=== PATIENT | female | born 1970 | race Caucasian/White ===

== ENCOUNTER → 2018-07-10 11:00 | Outpatient (CLI) | payer OTHER, SELFPAY | PROVIDERS: PCP Internal Medicine | DX: Z23 Encounter for immunization (principal) | CPT/HCPCS: 90471; 90686 ==

== ENCOUNTER → 2021-02-13 15:26 | Outpatient (CLI) | payer OTHER, SELFPAY ==
--- NOTE | 2021-02-13 | DI.MG.S_ITS ---
BILATERAL DIGITAL SCREENING MAMMOGRAM 3D/2D WITH CAD: 02/13/2021 CLINICAL: Routine screening. Comparison is made to exams dated: 05/04/2017 mammogram - [facility], 04/06/2017 mammogram, and 09/14/2011 mammogram - [facility]. There are scattered fibroglandular elements in both breasts. Current study was also evaluated with a Computer Aided Detection (CAD) system. No significant masses, calcifications, or other findings are seen in either breast. There has been no significant interval change. IMPRESSION: NEGATIVE There is no mammographic evidence of malignancy. A 1 year screening mammogram is recommended. This exam was interpreted at Station ID: [id number]. NOTE: For mammograms, a report in lay terms will be sent to the patient. Approximately 15% of breast malignancies will not be visualized mammographically. In the management of a palpable breast mass, a negative mammogram must not discourage biopsy of a clinically suspicious lesion. Electronically Signed By: Jennifer steel/jessica:02/22/2021 13:07:00 letter sent: Normal Exam ACR BI-RADS Category 1: Negative [id number]
== END ==
PROVIDERS: PCP Nurse Practitioner Family; Referring Provider Nurse Practitioner Family; Visit Provider Nurse Practitioner Family
DX: Z12.31 Encounter for screening mammogram for malignant neoplasm of breast (principal)
CPT/HCPCS: 77063; 77067

== ENCOUNTER 2024-04-01 10:12 | Observation (INO) | payer OTHER, SELFPAY ==
[2024-04-01] VITALS (24 sets, daily range): BP systolic 103–186; BP diastolic 65–100; PULSE 85–102; RESP 17–36; TEMP 36.1–36.4; O2SAT 92–98; BMI 45.8
--- NOTE | 2024-04-01 10:21 | ED.GENADULT ---
HPI - General Adult General Chief complaint: Shortness of Breath/Dyspnea Stated complaint: cant breathe cant talk Time Seen by Provider: 04/01/24 10:13 Source: patient Mode of arrival: Ambulatory Limitations: no limitations History of Present Illness HPI narrative: Patient is a 53-year-old female. No underlying lung issues such as COPD or asthma who is here for evaluation of shortness of breath and wheezing. She states that she has had off and on issues for the past several weeks but things have worsened over the past couple days in the significantly worsened over the past couple hours. No fevers. She was coughing. She does have access to a albuterol nebulizer at home and she did do at least 1 nebulizer if not more without much improvement. She was having chest discomfort with the coughing and breathing. Related Data Home Medications Medication Instructions Recorded Confirmed hyoscyamine sulfate 0.125 mg 0.125 mg sublingual ##0 05/10/17 04/03/18 disintegrating tablet Previous Rx's Medication Instructions Recorded fluoxetine 20 mg capsule 20 mg PO QDAY #30 caps 06/13/17 imiquimod 5 % topical cream packet 1 johanny topical HS ##12 09/19/17 (Aldara) Allergies Allergy/AdvReac Type Severity Reaction Status Date / Time amoxicillin [From AUGMENTIN] Allergy Severe chest Verified 04/01/24 10:29 pain, SOB clavulanic acid Allergy Severe chest Verified 04/01/24 10:29 [From AUGMENTIN] pain, SOB latex [LATEX] Allergy Intermediate Rash Verified 04/01/24 10:29 lisinopril [LISINOPRIL] Allergy Mild cough Verified 04/01/24 10:29 Review of Systems Review of Systems Narrative: See HPI Patient History Medical History (Updated 04/01/24 @ 14:51 by Abdifatah Huitron DO) Anxiety History of adenomatous polyp of colon Exercise-induced asthma Essential hypertension Irritable bowel syndrome Depression Migraines Knee pain Shoulder pain Fractures Foot pain Chronic back pain Ankle pain Eczema Acne Chicken pox Recurrent sinusitis Painful menstrual periods Ovarian cyst Irregular menstrual cycle Infertility (~1999) Hemorrhoid (~2005) Gluten enteropathy (~2010) GERD (gastroesophageal reflux disease) (~2009) Polycystic ovaries (05/10/17) Obstructive sleep apnea syndrome (05/10/17) Celiac disease (05/10/17) Surgical History Anesthesia History of ankle surgery (~06/2016) History of knee surgery (~1996) History of carpal tunnel repair (~07/2014) Family History Child Age: 16 Cerebral palsy Father Age: 78 Colon cancer Hypertension Grandfather Heart disease Stroke Diabetes mellitus Grandmother Mental health problem History of aneurysm Mother Age: 77 Depression Uterine cancer Hypertension High cholesterol Mental health problem Grandfather Heart disease Diabetes mellitus Stroke Grandmother Hypertension Mental health problem Sister Age: 55 Colon cancer Graves disease Social History Smoking Status: Never smoker Smoking Status: Never smoker Exam Initial Vital Signs Initial Vital Signs: Vital Signs Pulse Rate 102 H 04/01/24 10:18 Pulse Oximetry 94 04/01/24 10:18 HENMT Head: normal to inspection and normocephalic Resp Effort & Inspection: cough, labored, respiratory distress, no retractions and tachypneic Auscultation: wheezes Cardio Rate: regular rate Rhythm: regular rhythm Neuro General: patient alert, patient awake and moves all extremities Extrem General: capillary refill normal Course Orders Ordered: ED Orders 04/01/24 10:22 XR chest 1V Stat RT Consult Eval and Treat Now 04/01/24 10:25 Complete Blood Count AUTO DIFF Stat Comprehensive Metabolic Panel Stat Lipase Stat 04/01/24 12:28 Respiratory Panel (Film Array) Stat Discontinued Medications Acetaminophen (Acetaminophen 325 Mg Tablet) 975 mg PO NOW ONE Stop: 04/01/24 11:51 Last Admin: 04/01/24 12:16 Dose: 975 mg Documented By: TIFFANIE Albuterol (Albuterol 2.5 Mg/3 Ml Neb (Adult)) 20 mg INH NOW ONE Stop: 04/01/24 11:45 Last Admin: 04/01/24 12:47 Dose: 20 mg Documented By: CONNER Albuterol/Ipratropium (Albuterol/Ipratropium 3 Ml Ampul) 3 ml INH Q20M ERNESTO Stop: 04/01/24 11:11 Last Admin: 04/01/24 11:19 Dose: 3 ml Documented By: Admin: 04/01/24 10:51 Dose: 3 ml Documented By: Admin: 04/01/24 10:29 Dose: 3 ml Documented By: Magnesium Sulfate (Magnesium Sulfate) 2 gm in 50 mls @ 25 mls/hr IV NOW ONE Stop: 04/01/24 13:43 Last Infusion: 04/01/24 14:21 Dose: Infused Documented By: TIFFANIE Co-signed By: DEB Admin: 04/01/24 12:17 Dose: 25 mls/hr Documented By: TIFFANIE Co-signed By: DEB Ketorolac Tromethamine (Ketorolac 30 Mg/Ml Vial) 30 mg IV NOW ONE Stop: 04/01/24 14:48 Methylprednisolone (Methylprednisolone 125 Mg/2 Ml Vial) 125 mg IV NOW ONE Stop: 04/01/24 10:22 Last Admin: 04/01/24 10:32 Dose: 125 mg Documented By: OMARI Vital Signs Vital signs: Vital Signs - 8 hr 04/01/24 10:18 04/01/24 10:19 04/01/24 10:19 Temperature Pulse Rate 102 H 98 H Respiratory Rate Blood Pressure 138/100 H Pulse Oximetry 94 93 Oxygen Delivery Method Oxygen Flow Rate Fraction of Inspired Oxygen 04/01/24 10:24 04/01/24 10:30 04/01/24 11:00 Temperature 97.5 F L Pulse Rate 94 H 91 H 90 Respiratory Rate 24 36 H Blood Pressure 138/100 H Pulse Oximetry 97 97 94 Oxygen Delivery Method Room Air Oxygen Flow Rate Fraction of Inspired Oxygen 04/01/24 11:30 04/01/24 12:00 04/01/24 12:13 Temperature Pulse Rate 100 H 91 H 95 H Respiratory Rate 22 21 Blood Pressure Pulse Oximetry 96 92 95 Oxygen Delivery Method Oxygen Flow Rate Fraction of Inspired Oxygen 04/01/24 12:13 04/01/24 12:30 04/01/24 12:31 Temperature Pulse Rate 91 H Respiratory Rate 22 Blood Pressure 176/71 H 186/85 H Pulse Oximetry 93 Oxygen Delivery Method Oxygen Flow Rate Fraction of Inspired Oxygen 04/01/24 12:31 04/01/24 12:48 04/01/24 13:00 Temperature Pulse Rate 95 H 96 H 86 Respiratory Rate 31 H 20 Blood Pressure Pulse Oximetry 93 93 98 Oxygen Delivery Method Room Air Room Air Oxygen Flow Rate 0 Fraction of Inspired Oxygen 21 04/01/24 13:01 04/01/24 13:01 04/01/24 13:30 Temperature Pulse Rate 87 85 Respiratory Rate 17 19 Blood Pressure 160/78 H Pulse Oximetry 98 97 Oxygen Delivery Method Oxygen Flow Rate Fraction of Inspired Oxygen 04/01/24 13:31 04/01/24 13:31 04/01/24 14:00 Temperature Pulse Rate 85 85 Respiratory Rate 20 21 Blood Pressure 174/71 H Pulse Oximetry 98 97 Oxygen Delivery Method Aerosol Mask Oxygen Flow Rate 7 Fraction of Inspired Oxygen 04/01/24 14:01 04/01/24 14:01 Temperature Pulse Rate 87 Respiratory Rate 22 Blood Pressure 167/90 H Pulse Oximetry 97 Oxygen Delivery Method Aerosol Mask Oxygen Flow Rate 7 Fraction of Inspired Oxygen Medical Decision Making Lab Data Lab results reviewed: Yes I reviewed the patient's lab results. 04/01/24 10:25 04/01/24 10:25 Labs: Lab Results 04/01/24 04/01/24 Range/Units 10:25 12:28 WBC 12.4 H (4.5-11.0) X10^3/uL RBC 4.97 (4.0-5.2) X10^6/uL Hgb 15.8 (12.0-16.0) g/dL Hct 46.4 H (36-46) % MCV 93.3 (80-100) fL MCH 31.8 (26-34) PG MCHC 34.1 (30-36) % RDW 13.6 (11.6-14.8) % Plt Count 334 (150-400) X10^3/uL Neut % (Auto) 72.2 (50-75) % Lymph % (Auto) 17.1 L (25-40) % [place] % (Auto) 6.5 (3-14) % Eos % (Auto) 3.6 (2-4) % Baso % (Auto) 0.6 (0-2) % Neut # (Auto) 8900 H (5496-6483) /uL Lymph # (Auto) 2100 (9310-4766) /uL [place] # (Auto) 800 (0-900) /uL Eos # (Auto) 400 (0-450) /uL Baso # (Auto) 100 (0-100) /uL Sodium 142 (137-145) mmol/L Potassium 4.2 (3.4-5.1) mmol/L Chloride 111 H (98-107) mmol/L Carbon Dioxide 25 (22-32) mmol/L BUN 14 (7-17) mg/dL Creatinine 0.63 (0.52-1.04) mg/dL Estimated GFR > 60 (>60) mL/min BUN/Creatinine Ratio 22.2 H (6-22) Glucose 109 H (70-100) mg/dL Calcium 9.3 (8.4-10.2) mg/dL Total Bilirubin 0.6 (0.2-1.3) mg/dL AST 39 H (14-36) IU/L ALT 57 H (<35) IU/L Alkaline Phosphatase 93 (38-126) U/L Total Protein 8.6 H (6.3-8.2) g/dL Albumin 4.5 (3.5-5.0) g/dL Globulin 4.1 (1.7-4.1) g/dL Albumin/Globulin Ratio 1.1 (1.0-2.8) Lipase 82 (23-300) U/L Chlamy pneumoniae PCR Not detected (Not Detect) Adenovirus (PCR) Not detected (Not Detect) B.parapertussis DNA PCR Not detected (Not Detecte) Coronavirus OC43 (PCR) Not detected (Not Detect) Coronavirus HKU1 (PCR) Not detected (Not Detect) Coronavirus 229E (PCR) Not detected (Not Detect) SARS-CoV-2 (PCR) Not detected (Not Detecte) Coronavirus NL63 (PCR) Not detected (Not Detect) Human Metapneumovir PCR Not detected (Not Detect) Influenza Type A (PCR) Not detected (Not Detect) Influenza Type B (PCR) Not detected (Not Detect) M. pneumoniae (PCR) Not detected (Not Detect) Parainfluenza 1 (PCR) Not detected (Not Detect) Parainfluenza 2 (PCR) Not detected (Not Detect) Parainfluenza 3 (PCR) Not detected (Not Detect) Parainfluenza 4 (PCR) Not detected (Not Detect) RSV (PCR) Not detected (Not Detect) Entero/Rhino (PCR) Not detected (Not Detect) Imaging Data Chest x-ray: Radiologist's Impression: PROCEDURE: XR CHEST 1V INDICATIONS: SOB TECHNIQUE: One view of the chest was acquired. COMPARISON: None. FINDINGS: Surgical changes and devices: None. Lungs and pleura: Lungs are clear. No pleural effusions or pneumothorax. Mediastinum: Mediastinal contours appear normal. Heart size is normal. Bones and chest wall: No suspicious bony lesions. Overlying soft tissues appear unremarkable. IMPRESSION: No acute cardiopulmonary abnormality is seen. MDM Narrative Medical decision making narrative: Afebrile. Does have a leukocytosis however chest x-ray shows no signs of pneumonia. Respiratory panel was negative. Had bilateral wheezing upon arrival. Improved somewhat after 3 DuoNebs, magnesium, steroids and a continuous nebulizer but patient is still hypoxic with a oxygen saturations in the upper 80s low 90s. No antibiotics were administered. Patient is going to require admission to the hospital for continued treatment. Discussed the case with Dr. Amezquita who will admit. Discussed the need for admission with the patient. She expressed understanding and agreement with plan. Discharge Plan Departure Patient Disposition: Admitted as Observation Clinical Impression: Bilateral wheezing, Hypoxia Admit Date/Time: 04/01/24 14:51 Admit Provider: Hoang Amezquita
--- NOTE | 2024-04-01 10:22 | DI.RAD.S_ITS ---
PROCEDURE: XR CHEST 1V INDICATIONS: SOB TECHNIQUE: One view of the chest was acquired. COMPARISON: None. FINDINGS: Surgical changes and devices: None. Lungs and pleura: Lungs are clear. No pleural effusions or pneumothorax. Mediastinum: Mediastinal contours appear normal. Heart size is normal. Bones and chest wall: No suspicious bony lesions. Overlying soft tissues appear unremarkable. IMPRESSION: No acute cardiopulmonary abnormality is seen. Dictated by: Bam Caceres M.D. on 04/01/2024 at 9:54 Approved by: Bam Caceres M.D. on 04/01/2024 at 9:54
[2024-04-01] MEDS: ALBUTEROL/IPRATROPIUM 3 ML AMPUL INH ×3 (10:29→11:19)
[2024-04-01] MEDS: methylPREDNISolone 125 MG/2 ML VIAL IV (10:32)
[2024-04-01 10:53] LABS: Add Manual Diff / Slide Review NO; Alanine Aminotransferase 57 IU/L (<35); Albumin 4.5 g/dL (3.5-5.0); Albumin Globulin Ratio 1.1 (1.0-2.8); Alkaline Phosphatase 93 U/L (38-126); Aspartate Aminotransferase 39 IU/L (14-36); BUN Creatinine Ratio 22.2 (6-22); Basophils Absolute Auto 100 /uL (0-100); Basophils Percent Auto 0.6 % (0-2); Bilirubin Total 0.6 mg/dL (0.2-1.3); Blood Urea Nitrogen 14 mg/dL (7-17); Calcium 9.3 mg/dL (8.4-10.2); Carbon Dioxide 25 mmol/L (22-32); Chloride 111 mmol/L (98-107); Eosinophils Absolute Auto 400 /uL (0-450); Eosinophils Percent Auto 3.6 % (2-4); Estimated Glomerular Filt Rate > 60 mL/min (>60); Globulin 4.1 g/dL (1.7-4.1); Glucose 109 mg/dL (70-100); HEMOLYSIS < 15 (0-50); Hematocrit 46.4 % (36-46); Hemoglobin 15.8 g/dL (12.0-16.0); Lipase 82 U/L (23-300); Lymphocytes Absolute Auto 2100 /uL (1100-4500); Lymphocytes Percent Auto 17.1 % (25-40); Mean Corpuscular HGB Conc 34.1 % (30-36); Mean Corpuscular Hemoglobin 31.8 PG (26-34); Mean Corpuscular Volume 93.3 fL (80-100); Monocytes Absolute Auto 800 /uL (0-900); Monocytes Percent Auto 6.5 % (3-14); Neutrophils Absolute Auto 8900 /uL (1500-7000); Neutrophils Percent Auto 72.2 % (50-75); Platelet Count 334 X10^3/uL (150-400); Potassium 4.2 mmol/L (3.4-5.1); Red Blood Cell Count 4.97 X10^6/uL (4.0-5.2); Red Cell Distribution Width 13.6 % (11.6-14.8); Sodium 142 mmol/L (137-145); Total Protein 8.6 g/dL (6.3-8.2); White Blood Cell Count 12.4 X10^3/uL (4.5-11.0)
[2024-04-01] MEDS: ACETAMINOPHEN 325 MG TABLET 975 MG PO (12:16)
[2024-04-01] MEDS: MAGNESIUM SULFATE 2 GM/50 ML PIGGYBACK IV (12:17)
--- NOTE | 2024-04-01 12:41 | PC.NURSE ---
Elana ok'd the patient to eat, pt afterwards had a sustained coughing fit for several minutes after one bite. told pt to hold off on eating anything more. pt oxygen saturation was maintained above 94%
[2024-04-01] MEDS: ALBUTEROL 2.5 MG/3 ML NEB (ADULT) 20 MG INH (12:47)
[2024-04-01 13:39] LABS: Adenovirus Not Detected (Not Detect); B. parapertussis Not Detected (Not Detecte); Bordetella pertussis Not Detected (Not Detect); Chlamydophila pneumoniae Not Detected (Not Detect); Coronavirus 229E Not Detected (Not Detect); Coronavirus HKU1 Not Detected (Not Detect); Coronavirus NL 63 Not Detected (Not Detect); Coronavirus OC43 Not Detected (Not Detect); Human Metapneumovirus Not Detected (Not Detect); Human Rhinovirus/Enterovirus Not Detected (Not Detect); Influenza A Not Detected (Not Detect); Influenza B Not Detected (Not Detect); Mycoplasma pneumoniae Not Detected (Not Detect); Parainfluenza Virus 1 Not Detected (Not Detect); Parainfluenza Virus 2 Not Detected (Not Detect); Parainfluenza Virus 3 Not Detected (Not Detect); Parainfluenza Virus 4 Not Detected (Not Detect); Respiratory Syncytial Virus Not Detected (Not Detect); SARS- CoV-2 Not Detected (Not Detecte)
[2024-04-01] MEDS: KETOROLAC 30 MG/ML VIAL IV (15:04)
--- NOTE | 2024-04-01 15:33 | PM.HP.1 ---
History of Present Illness History of Present Illness Date Patient Seen: 04/01/24 Chief complaint: cant breathe cant talk Narrative: ED Provider: Patient is a 53-year-old female. No underlying lung issues such as COPD or asthma who is here for evaluation of shortness of breath and wheezing. She states that she has had off and on issues for the past several weeks but things have worsened over the past couple days in the significantly worsened over the past couple hours. No fevers. She was coughing. She does have access to a albuterol nebulizer at home and she did do at least 1 nebulizer if not more without much improvement. She was having chest discomfort with the coughing and breathing. S: She was a history of exercise-induced asthma and uses an inhaler rarely. She also has a lot of allergies including alters, grass, and dogs. There has been a lot of cutting activity of surrounding trees and grass over the last 2 weeks and she has been progressively short of breath for the last 2 weeks. She has been using her inhaler more than usual but not a great deal until this morning when she developed acute shortness a breath in a hoarse voice. She presented to the ED and was dyspneic and did not really respond to magnesium and several albuterol inhalers. Her saturations were 93%. She has a lot of bronchospasm and coughing fits wean produce a scant sputum. She denies any recent URI symptoms such as fevers, chills, productive cough, or sore throat. A viral PCR was negative in the ED. She was given IV corticosteroids in the ED. [facility] Medical History Anxiety History of adenomatous polyp of colon Exercise-induced asthma Essential hypertension Irritable bowel syndrome Depression Migraines Knee pain Shoulder pain Fractures Foot pain Chronic back pain Ankle pain Eczema Acne Chicken pox Recurrent sinusitis Painful menstrual periods Ovarian cyst Irregular menstrual cycle Infertility (~1999) Hemorrhoid (~2005) Gluten enteropathy (~2010) GERD (gastroesophageal reflux disease) (~2009) Polycystic ovaries (05/10/17) Obstructive sleep apnea syndrome (05/10/17) Celiac disease (05/10/17) Surgical History Anesthesia History of ankle surgery (~06/2016) History of knee surgery (~1996) History of carpal tunnel repair (~07/2014) Family History Child Age: 16 Cerebral palsy Father Age: 78 Colon cancer Hypertension Grandfather Heart disease Stroke Diabetes mellitus Grandmother Mental health problem History of aneurysm Mother Age: 77 Depression Uterine cancer Hypertension High cholesterol Mental health problem Grandfather Heart disease Diabetes mellitus Stroke Grandmother Hypertension Mental health problem Sister Age: 55 Colon cancer Graves disease Social History household members: spouse Smoking Status: Current some day smoker Meds Home Medications and Allergies Home Medications Medication Instructions Recorded Confirmed Type albuterol sulfate 90 mcg/actuation 1 inh inhalation QID PRN Shortness 04/01/24 04/01/24 History aerosol inhaler Of Breath Or Wheezing gabapentin 100 mg capsule 100 mg PO ONCE PM PRN Sleep 04/01/24 04/01/24 History losartan 25 mg tablet 25 mg PO DAILY 04/01/24 04/01/24 History meloxicam 15 mg tablet 15 mg PO DAILY PRN Pain (Scale 04/01/24 04/01/24 History Score 4-6) propranolol 80 mg capsule,24 80 mg PO DAILY 04/01/24 04/01/24 History hr,extended release venlafaxine 150 mg 300 mg PO DAILY 04/01/24 04/01/24 History capsule,extended release 24 hr Allergies Allergy/AdvReac Type Severity Reaction Status Date / Time amoxicillin [From AUGMENTIN] Allergy Severe chest Verified 04/01/24 10:29 pain, SOB clavulanic acid Allergy Severe chest Verified 04/01/24 10:29 [From AUGMENTIN] pain, SOB latex [LATEX] Allergy Intermediate Rash Verified 04/01/24 10:29 lisinopril [LISINOPRIL] Allergy Mild cough Verified 04/01/24 10:29 Review of Systems Review of Systems Narrative: All else reviewed and otherwise unremarkable except as noted in the history and physical. Exam Vital Signs (past 8 hours): - 04/01/24 10:18 04/01/24 10:19 04/01/24 10:19 Temperature Pulse Rate 102 H 98 H Respiratory Rate Blood Pressure 138/100 H Pulse Oximetry 94 93 Oxygen Delivery Method Oxygen Flow Rate Fraction of Inspired Oxygen 04/01/24 10:24 04/01/24 10:30 04/01/24 11:00 Temperature 97.5 F L Pulse Rate 94 H 91 H 90 Respiratory Rate 24 36 H Blood Pressure 138/100 H Pulse Oximetry 97 97 94 Oxygen Delivery Method Room Air Oxygen Flow Rate Fraction of Inspired Oxygen 04/01/24 11:30 04/01/24 12:00 04/01/24 12:13 Temperature Pulse Rate 100 H 91 H 95 H Respiratory Rate 22 21 Blood Pressure Pulse Oximetry 96 92 95 Oxygen Delivery Method Oxygen Flow Rate Fraction of Inspired Oxygen 04/01/24 12:13 04/01/24 12:30 04/01/24 12:31 Temperature Pulse Rate 91 H Respiratory Rate 22 Blood Pressure 176/71 H 186/85 H Pulse Oximetry 93 Oxygen Delivery Method Oxygen Flow Rate Fraction of Inspired Oxygen 04/01/24 12:31 04/01/24 12:48 04/01/24 13:00 Temperature Pulse Rate 95 H 96 H 86 Respiratory Rate 31 H 20 Blood Pressure Pulse Oximetry 93 93 98 Oxygen Delivery Method Room Air Room Air Oxygen Flow Rate 0 Fraction of Inspired Oxygen 21 04/01/24 13:01 04/01/24 13:01 04/01/24 13:30 Temperature Pulse Rate 87 85 Respiratory Rate 17 19 Blood Pressure 160/78 H Pulse Oximetry 98 97 Oxygen Delivery Method Oxygen Flow Rate Fraction of Inspired Oxygen 04/01/24 13:31 04/01/24 13:31 04/01/24 14:00 Temperature Pulse Rate 85 85 Respiratory Rate 20 21 Blood Pressure 174/71 H Pulse Oximetry 98 97 Oxygen Delivery Method Aerosol Mask Oxygen Flow Rate 7 Fraction of Inspired Oxygen 04/01/24 14:01 04/01/24 14:01 04/01/24 14:30 Temperature Pulse Rate 87 91 H Respiratory Rate 22 23 Blood Pressure 167/90 H Pulse Oximetry 97 93 Oxygen Delivery Method Aerosol Mask Oxygen Flow Rate 7 Fraction of Inspired Oxygen 04/01/24 15:00 04/01/24 15:09 04/01/24 15:09 Temperature Pulse Rate 97 H 98 H Respiratory Rate Blood Pressure 120/81 Pulse Oximetry 93 Oxygen Delivery Method Oxygen Flow Rate Fraction of Inspired Oxygen Fraction of Inspired Oxygen 21 SaO2/FiO2 Ratio 442 Oxygen Delivery Method Aerosol Mask Oxygen Flow Rate 7 Narrative Exam Narrative: NAD, alert and oriented, fluent speech, calm. She does have crackly speech and intermittent bronchospasm with talking. Normocephalic skull, EOMI, anicteric sclera, symmetric pupils. Oropharynx unremarkable, no droop. Neck supple, midline trachea, no adenopathy. Lungs clear, normal rate and effort. No real stridor. Heart regular, no murmur gallop or rub. Abdomen is soft, non distended and non tender. Extremities are free of edema. Skin is free of rash or lesions. Joints are not swollen or deformed. Judgment appears to be normal. Objective Imaging Chest x-ray: Radiologist's impression: Clear. Labs 04/01/24 10:25 04/01/24 10:25 Labs: Laboratory Results - last 24 hr 04/01/24 04/01/24 10:25 12:28 WBC 12.4 H RBC 4.97 Hgb 15.8 Hct 46.4 H MCV 93.3 MCH 31.8 MCHC 34.1 RDW 13.6 Plt Count 334 Neut % (Auto) 72.2 Lymph % (Auto) 17.1 L [place] % (Auto) 6.5 Eos % (Auto) 3.6 Baso % (Auto) 0.6 Neut # (Auto) 8900 H Lymph # (Auto) 2100 [place] # (Auto) 800 Eos # (Auto) 400 Baso # (Auto) 100 Sodium 142 Potassium 4.2 Chloride 111 H Carbon Dioxide 25 BUN 14 Creatinine 0.63 Estimated GFR > 60 BUN/Creatinine Ratio 22.2 H Glucose 109 H Calcium 9.3 Total Bilirubin 0.6 AST 39 H ALT 57 H Alkaline Phosphatase 93 Total Protein 8.6 H Albumin 4.5 Globulin 4.1 Albumin/Globulin Ratio 1.1 Lipase 82 Chlamy pneumoniae PCR Not detected Adenovirus (PCR) Not detected B.parapertussis DNA PCR Not detected Coronavirus OC43 (PCR) Not detected Coronavirus HKU1 (PCR) Not detected Coronavirus 229E (PCR) Not detected SARS-CoV-2 (PCR) Not detected Coronavirus NL63 (PCR) Not detected Human Metapneumovir PCR Not detected Influenza Type A (PCR) Not detected Influenza Type B (PCR) Not detected M. pneumoniae (PCR) Not detected Parainfluenza 1 (PCR) Not detected Parainfluenza 2 (PCR) Not detected Parainfluenza 3 (PCR) Not detected Parainfluenza 4 (PCR) Not detected RSV (PCR) Not detected Entero/Rhino (PCR) Not detected Assessment & Plan Assessment & Plan narrative: 1. Acute asthma exacerbation, present on admission and active. 2. Hypertension, present on admission and active. 3. Polycystic ovaries, present on admission and active. 4. MIGNON, present on admission and active. 5. Morbid obesity, present on admission and active. PLAN: -frequent albuterol nebs, scheduled and as needed. -continue IV corticosteroids. -add loratadine. -Tessalon for cough. -pain medication as needed for sore chest from cough. -monitor breathing and evidence of respiratory distress. She was admitted to observation status, anticipate 1 midnight necessity for hospital services. She was full resuscitation, is proxy decision maker. Time-Based Coding :: 40 min spent with patient and on the chart (including review of chart, obtaining history, exam, reviewing outside data, placing orders, documenting exam and treatment plan, and counseling patient) on 04/01. Quality MIPS - Admit I confirm the patient?s Advance Care Plan is present, Code status is documented, Surrogate decision maker is in patient?s record [If Yes, STOP here]: Yes MIPS - Meds 'Current medications' to include all prescriptions, [id number] products, herbals, cannabis/cannabidiol products, and vitamin/mineral/dietary (nutritional) supplements. I have utilized all available resources to obtain, update, or review the patient?s current medications. [If Yes, STOP here]: Yes
[2024-04-01] MEDS: methylPREDNISolone 125 MG/2 ML VIAL 60 MG IV ×2 (17:11→23:14)
[2024-04-01] MEDS: BENZONATATE 100 MG CAPSULE PO (17:11)
[2024-04-01] MEDS: LORATADINE 10 MG TABLET PO (17:11)
[2024-04-01] MEDS: ALBUTEROL 2.5 MG/3 ML NEB (ADULT) INH ×3 (18:29→22:48)
[2024-04-01] MEDS: HEPARIN 5,000 UNIT/ML VIAL 5000 UNIT SUBCUT (20:48)
[2024-04-01] MEDS: ACETAMINOPHEN 325 MG TABLET 650 MG PO (20:57)
[2024-04-02 02:40] VITALS: BP 140/59; PULSE 98; RESP 20; TEMP 36.3; O2SAT 96
[2024-04-02] MEDS: TRAZODONE 50 MG TABLET PO (02:42)
[2024-04-02] MEDS: guaiFENesin Solution 100 MG/5 ML UDC 200 MG PO (02:42)
[2024-04-02] MEDS: methylPREDNISolone 125 MG/2 ML VIAL 60 MG IV ×2 (05:28→11:51)
[2024-04-02 05:35] VITALS: BP 112/46; PULSE 97; RESP 18; TEMP 36.6; O2SAT 92
[2024-04-02 06:40] LABS: Add Manual Diff / Slide Review NO; Basophils Absolute Auto 0 /uL (0-100); Basophils Percent Auto 0.2 % (0-2); Eosinophils Absolute Auto 0 /uL (0-450); Eosinophils Percent Auto 0.1 % (2-4); Hematocrit 42.6 % (36-46); Hemoglobin 14.1 g/dL (12.0-16.0); Lymphocytes Absolute Auto 1500 /uL (1100-4500); Mean Corpuscular HGB Conc 33.1 % (30-36); Mean Corpuscular Hemoglobin 31.2 PG (26-34); Mean Corpuscular Volume 94.4 fL (80-100); Monocytes Absolute Auto 400 /uL (0-900); Monocytes Percent Auto 1.8 % (3-14); Neutrophils Absolute Auto 17300 /uL (1500-7000); Neutrophils Percent Auto 89.9 % (50-75); Platelet Count 275 X10^3/uL (150-400); Red Blood Cell Count 4.51 X10^6/uL (4.0-5.2); Red Cell Distribution Width 13.8 % (11.6-14.8); White Blood Cell Count 19.2 X10^3/uL (4.5-11.0)
[2024-04-02 06:47] LABS: Blood Urea Nitrogen 22 mg/dL (7-17); Calcium 9.1 mg/dL (8.4-10.2); Carbon Dioxide 22 mmol/L (22-32); Chloride 109 mmol/L (98-107); Estimated Glomerular Filt Rate > 60 mL/min (>60); Glucose 163 mg/dL (70-100); HEMOLYSIS < 15 (0-50); Potassium 3.9 mmol/L (3.4-5.1); Sodium 136 mmol/L (137-145)
[2024-04-02] MEDS: VENLAFAXINE ER 75 MG CAP 300 MG PO (08:08)
[2024-04-02] MEDS: LOSARTAN 25 MG TABLET PO (08:08)
[2024-04-02] MEDS: LORATADINE 10 MG TABLET PO (08:08)
[2024-04-02] MEDS: ALBUTEROL 2.5 MG/3 ML NEB (ADULT) INH (08:31)
[2024-04-02 08:32] VITALS: PULSE 97; RESP 18; O2SAT 97
[2024-04-02 08:34] VITALS: BP 141/77; PULSE 93; RESP 18; TEMP 36.1; O2SAT 96
--- NOTE | 2024-04-02 11:03 | P.DS_ITS ---
History of Present Illness History of Present Illness Chief complaint: cant breathe cant talk Narrative: ED Provider: Patient is a 53-year-old female. No underlying lung issues such as COPD or asthma who is here for evaluation of shortness of breath and wheezing. She states that she has had off and on issues for the past several weeks but things have worsened over the past couple days in the significantly worsened over the past couple hours. No fevers. She was coughing. She does have access to a albuterol nebulizer at home and she did do at least 1 nebulizer if not more without much improvement. She was having chest discomfort with the coughing and breathing. S: She was a history of exercise-induced asthma and uses an inhaler rarely. She also has a lot of allergies including alters, grass, and dogs. There has been a lot of cutting activity of surrounding trees and grass over the last 2 weeks and she has been progressively short of breath for the last 2 weeks. She has been using her inhaler more than usual but not a great deal until this morning when she developed acute shortness a breath in a hoarse voice. She presented to the ED and was dyspneic and did not really respond to magnesium and several albuterol inhalers. Her saturations were 93%. She has a lot of bronchospasm and coughing fits wean produce a scant sputum. She denies any recent URI symptoms such as fevers, chills, productive cough, or sore throat. A viral PCR was negative in the ED. She was given IV corticosteroids in the ED. Discharge Providers Provider Date of admission: 04/01/24 14:51 Discharge Date: 04/02/24 Primary care physician: BATSHEVA Gupta Consults: 04/01/24 16:25 Consult to Cardio/Pulmonary Rehabilitation Routine Comment: Physician Instructions: Evaluate and treat Discharge provider: Hoang Amezquita MD Summary Hospital Course Discharge Diagnosis: 1. Acute asthma exacerbation, present on admission and active. 2. Hypertension, present on admission and active. 3. Polycystic ovaries, present on admission and active. 4. MIGNON, present on admission and active. 5. Morbid obesity, present on admission and active. Hospital Course: She was admitted for a moderate exacerbation of reactive airways in context of her allergies and asthma. She was treated with steroids and frequent bronchodilators and improved. She also required pain medication and antitussive agents. On the day of discharge he was much improved and had minimal wheezing and felt that her breathing was much better. She was also given loratadine here, and she was advised to continue taking an antihistamine for the rest of the allergy season. She notes allergies that are trees, and grasses. She also did list dogs as an allergy but states that she does not react her own dogs. Status at Discharge Cognitive/behavioral status at discharge: oriented Functional status at discharge: independent ambulation Overall status at discharge: patient is back to baseline Time Spent with Patient Time spent: Greater than 30 minutes Exam Vital Signs (past 8 hours): - 04/02/24 05:35 04/02/24 08:32 04/02/24 08:34 Temperature 97.8 F 97 F L Pulse Rate 97 H 97 H 93 H Respiratory Rate 18 18 18 Blood Pressure 112/46 L 141/77 H Pulse Oximetry 92 97 96 Oxygen Delivery Method Room Air Oxygen Flow Rate 0 0 Fraction of Inspired Oxygen 21 Fraction of Inspired Oxygen 21 SaO2/FiO2 Ratio 461 Oxygen Delivery Method Room Air Oxygen Flow Rate 0 Narrative Exam Narrative: NAD, alert and oriented. Fluent speech. Lungs are clear, normal rate and effort. Heart is regular, no murmur gallop or rub. Abdomen is soft, non distended. Extremities are free of edema. Objective Imaging Chest x-ray: Radiologist's impression: Chest x-ray is clear. Labs 04/02/24 06:26 04/02/24 06:26 Labs: Laboratory Results - last 24 hr 04/01/24 04/02/24 12:28 06:26 WBC 19.2 H D RBC 4.51 Hgb 14.1 Hct 42.6 MCV 94.4 MCH 31.2 MCHC 33.1 RDW 13.8 Plt Count 275 Neut % (Auto) 89.9 H Lymph % (Auto) 8.0 L [place] % (Auto) 1.8 L Eos % (Auto) 0.1 L Baso % (Auto) 0.2 Neut # (Auto) 28733 H Lymph # (Auto) 1500 [place] # (Auto) 400 Eos # (Auto) 0 Baso # (Auto) 0 Sodium 136 L Potassium 3.9 Chloride 109 H Carbon Dioxide 22 BUN 22 H Creatinine 0.55 Estimated GFR > 60 BUN/Creatinine Ratio 40.0 H Glucose 163 H Calcium 9.1 Chlamy pneumoniae PCR Not detected Adenovirus (PCR) Not detected B.parapertussis DNA PCR Not detected Coronavirus OC43 (PCR) Not detected Coronavirus HKU1 (PCR) Not detected Coronavirus 229E (PCR) Not detected SARS-CoV-2 (PCR) Not detected Coronavirus NL63 (PCR) Not detected Human Metapneumovir PCR Not detected Influenza Type A (PCR) Not detected Influenza Type B (PCR) Not detected M. pneumoniae (PCR) Not detected Parainfluenza 1 (PCR) Not detected Parainfluenza 2 (PCR) Not detected Parainfluenza 3 (PCR) Not detected Parainfluenza 4 (PCR) Not detected RSV (PCR) Not detected Entero/Rhino (PCR) Not detected PFSH Medical History Anxiety History of adenomatous polyp of colon Exercise-induced asthma Essential hypertension Irritable bowel syndrome Depression Migraines Knee pain Shoulder pain Fractures Foot pain Chronic back pain Ankle pain Eczema Acne Chicken pox Recurrent sinusitis Painful menstrual periods Ovarian cyst Irregular menstrual cycle Infertility (~1999) Hemorrhoid (~2005) Gluten enteropathy (~2010) GERD (gastroesophageal reflux disease) (~2009) Polycystic ovaries (05/10/17) Obstructive sleep apnea syndrome (05/10/17) Celiac disease (05/10/17) Surgical History Anesthesia History of ankle surgery (~06/2016) History of knee surgery (~1996) History of carpal tunnel repair (~07/2014) Family History Child Age: 16 Cerebral palsy Father Age: 78 Colon cancer Hypertension Grandfather Heart disease Stroke Diabetes mellitus Grandmother Mental health problem History of aneurysm Mother Age: 77 Depression Uterine cancer Hypertension High cholesterol Mental health problem Grandfather Heart disease Diabetes mellitus Stroke Grandmother Hypertension Mental health problem Sister Age: 55 Colon cancer Graves disease Social History household members: spouse Smoking Status: Current some day smoker Discharge Assessment & Plan Assessment and Plan Assessment: 1. Acute asthma exacerbation, present on admission and active. 2. Hypertension, present on admission and active. 3. Polycystic ovaries, present on admission and active. 4. MIGNON, present on admission and active. 5. Morbid obesity, present on admission and active. Plan of Treatment: Discharge home on prednisone 40 mg daily for 5 days, bronchodilators as needed, antitussive with Tessalon, and hydrocodone for pain. Close follow up with PCP, recommend loratadine or Zyrtec on a daily basis and avoidance of allergens. Discharge Plan Discharge Plan Patient Disposition: Home Provider Discharge Comment: Stable for discharge home on oral prednisone with close follow up. Discharge orders & Medications Prescriptions: New hydrocodone-acetaminophen 5-325 mg Tablet 1 tab PO Q4H PRN (Reason: Pain, Moderate (4-6)) Qty: 20 0RF benzonatate 100 mg Capsule 100 mg PO TID PRN (Reason: Cough) Qty: 30 0RF prednisone 20 mg tablet 40 mg PO DAILY Qty: 10 0RF Continued meloxicam 15 mg tablet 15 mg PO DAILY PRN (Reason: Pain (Scale Score 4-6)) venlafaxine 150 mg capsule,extended release 24hr 300 mg PO DAILY propranolol 80 mg capsule,extended release 24hr 80 mg PO DAILY losartan 25 mg tablet 25 mg PO DAILY gabapentin 100 mg capsule 100 mg PO ONCE PM PRN (Reason: Sleep) albuterol sulfate 90 mcg/actuation Hfa Aerosol Inhaler 1 inh INHALATION QID PRN (Reason: Shortness Of Breath Or Wheezing) Follow up/Referrals: Cristina Segura ARNP [Primary Care Provider] - Discharge Health Status Multidrug resistant organism: No MDRO Diet/Activity/Treatments Diet: Diet as Tolerated Visit Report/Discharge Packet Instructions: DI for Asthma -- Adult Stand Alone Forms: Patient Portal/API Discharge Data Primary Care Provider: Cristina Segura Attending Provider: Hoang Amezquita Admit Date/Time: 04/01/24 14:51 Quality VTE Deep Vein Thrombosis/Pulmonary Embolism Present on Admission: No
[2024-04-02 12:00] VITALS: BP 139/59; PULSE 104; RESP 19; TEMP 36.4; O2SAT 97
--- NOTE | 2024-04-02 12:32 | CM.DANOTE ---
Initial DCP Assessment Visit Note Reviewed EMR and team rounds for status updates. Met with pt at bedside to introduce self and role. Pt was found to be alert/oriented, able to discuss her concerns and preference for home d/c. She expresses feeling much better today, and is ready to return home. She lives independently with her spouse in their own home in [place] with their 2-teen girls and her mother. Pt/family decline any d/c assistance or needs at this time. Payor: Karen Preferred PCP: Cristina Segura Pt is a 53 year-old F who presented to the ED last evening with c/o progressively worsening shortness of breath and wheezing, which has been happening intermittently for the last several months. She has been worse over the last few days. She had tried her albuteral inhaler at home which she has for asthma with no benefit. In the ED, she was given IV coricosteroids and several nebulizer treatments, then brought to the floor under OBS for further breathing treatments and monitoring. Today, she is being discharged with 5-days of Prednisone, broncodilators, and pain meds. Discharge Planning/Care Management CM Discharge Assessment Start: 04/02/24 12:14 Freq: Status: Active Protocol: Document 04/02/24 12:14 DPL (Rec: 04/02/24 12:31 DPL [id number]) Discharge Planning Assessment Assigned Retail Marketing Manager P[employer] [place] Advance Directives? No History Provided By Patient,Medical Record Has Patient been admitted in last 30 No days? Prior Living Arrangements House Household Members spouse Type of transporation used prior to Drives own vehicle admit Independent with ADL's Yes Is patient alert and oriented? Yes Caregiver for Another No: children, mother, DME Already Rented / Owned Nebulizer Comment No identified home d/c needs at this time. Barriers to Discharge No Transportation Arrangement Spouse Referrals Initiated None needed Whiteboard Updated in Patient Room with Yes name and ext. # of Retail Marketing Manager Review Status In Process Please Provide Date Initial DC 04/02/24 Assessment Was Performed
--- NOTE | 2024-04-02 13:14 | PC.NURSE ---
Discharge Note Patient A&O, VSS, RA, no complaints of pain/discomfort. Discharge packet reviewed with patient, all questions/concerns addressed. PIV discontinued. Patient able to dress self and pack all belongings. Patient reminded to pickle maker prescriptions at preferred pharmacy. Patient taken down via wheelchair to POV.
== END 2024-04-02 12:45 | disposition home or self-care (01) ==
LOC: ED 14:51 → AC 14:52
PROVIDERS: Admitting Provider Hospitalist; Emergency Provider Emergency Medicine; PCP Nurse Practitioner Family; Referring Provider Emergency Medicine; Visit Provider Hospitalist
DX: J45.901 Unspecified asthma with (acute) exacerbation (principal); R06.02 Shortness of breath; Z11.52 Encounter for screening for COVID-19; F17.210 Nicotine dependence, cigarettes, uncomplicated; I10 Essential (primary) hypertension; G47.33 Obstructive sleep apnea (adult) (pediatric); E66.01 Morbid (severe) obesity due to excess calories
CPT/HCPCS: 71045; 80048; 80053; 83690; 85025; 87633; 94640; 96361; 96374; 96375; 96376; 99284; G0378; J1644; J1885; J2919; J3475; J7613

== ENCOUNTER 2024-12-10 11:36 | Emergency (ER) | payer OTHER, SELFPAY ==
[2024-04-01 15:42] VITALS: BMI 45.8
[2024-12-10] VITALS (7 sets, daily range): BP systolic 104–147; BP diastolic 67–73; PULSE 95–103; RESP 18; TEMP 36.3; O2SAT 95–98; BMI 40.7
--- NOTE | 2024-12-10 12:04 | ED_ITS ---
HPI - Back Pain/Injury General Chief Complaint: Back Pain/Injury Stated Complaint: Back px Time Seen by Provider: 12/10/24 11:54 History of Present Illness HPI Narrative: 54-year-old female with past medical history hypertension, GERD, chronic back pain, obstructive sleep apnea, migraines, depression, anxiety presents to the ED with 1 day of acute right-sided flank pain radiating around to the right groin. Patient does have a history of chronic back pain. Patient states that this flank pain for started 3 weeks ago, very sporadically. However at 3:00 a.m. this morning, patient has had acute pain that comes every few minutes that the patient describes as spasms. Denies fever, chills, nausea, vomiting, dysuria, urinary hesitancy, urinary incontinence, saddle paresthesias, hematuria, diarrhea. Patient has been on Wegovy for the last 2 months for weight loss and has been successfully losing weight. No history of kidney stones. Patient had a fall 2 months ago, however it was on her left side and she does not think it is related to her pain today. No recent trauma. No chest pain, shortness of breath, lightheadedness, dizziness, syncope. Related Data Home Medications Medication Instructions Recorded Confirmed gabapentin 100 mg capsule 100 mg PO ONCE PM PRN Sleep 04/01/24 04/01/24 losartan 25 mg tablet 25 mg PO DAILY 04/01/24 04/01/24 meloxicam 15 mg tablet 15 mg PO DAILY PRN Pain (Scale 04/01/24 04/01/24 Score 4-6) propranolol 80 mg capsule,24 80 mg PO DAILY 04/01/24 04/01/24 hr,extended release venlafaxine 150 mg 300 mg PO DAILY 04/01/24 04/01/24 capsule,extended release 24 hr Previous Rx's Medication Instructions Recorded albuterol sulfate 90 mcg/actuation 1 inh inhalation Q4-6H PRN 04/02/24 breath activated powder inhaler shortness of breath #1 ea benzonatate 200 mg capsule 200 mg PO BID-TID PRN cough #30 04/02/24 caps hydrocodone 5 mg-acetaminophen 325 1 tab PO Q4H PRN Pain, Moderate 04/02/24 mg tablet (4-6) #20 tabs prednisone 20 mg tablet 40 mg (2 x 20 mg) PO DAILY #10 tabs 04/02/24 cefpodoxime 200 mg tablet 200 mg PO Q12H 14 days #28 tabs 12/10/24 tramadol 50 mg tablet 50 mg PO Q4H PRN pain #20 tabs 12/10/24 Allergies Allergy/AdvReac Type Severity Reaction Status Date / Time amoxicillin [From AUGMENTIN] Allergy Severe chest Verified 04/01/24 10:29 pain, SOB clavulanic acid Allergy Severe chest Verified 04/01/24 10:29 [From AUGMENTIN] pain, SOB latex [LATEX] Allergy Intermediate Rash Verified 04/01/24 10:29 lisinopril [LISINOPRIL] Allergy Mild cough Verified 04/01/24 10:29 gluten Allergy Verified 04/02/24 12:38 nirmatrelvir [From Paxlovid] Allergy Anaphylaxis Verified 04/02/24 00:15 ritonavir [From Paxlovid] Allergy Anaphylaxis Verified 04/02/24 00:15 Review of Systems Constitutional Constitutional: Denies chills, Denies fatigue, Denies fever(s), Denies frequent falls, Denies lethargy and Denies weakness Eyes Eyes: Denies change in vision, Denies eye discharge, Denies irritation and Denies loss of vision ENT Ears, Nose, Mouth, and Throat: Denies change in voice, Denies dizziness, Denies neck pain, Denies sore throat and Denies throat swelling Cardiovascular Cardiovascular: Denies chest pain, Denies irregular heart rhythm, Denies lightheadedness, Denies palpitations, Denies dyspnea, Denies dyspnea on exertion and Denies orthopnea Respiratory Respiratory: Denies cough, Denies dyspnea, Denies dyspnea on exertion and Denies wheezing Gastrointestinal Gastrointestinal: Denies abdominal pain, Denies change in bowel habits, Denies diarrhea, Denies nausea and Denies vomiting Comments: Right-sided flank pain, radiating down the front to the groin. Musculoskeletal Musculoskeletal: Denies neck pain and Denies numbness Integumentary/Breasts Skin/Breast: Denies pruritus, Denies erythema, Denies rash and Denies wounds Neurologic Neurologic: Denies behavioral changes, Denies confusion, Denies dizziness, Denies frequent falls, Denies loss of vision, Denies numbness and Denies weakness Psychiatric Psychiatric: Denies anxiety, Denies behavioral changes, Denies confusion, Denies depression, Denies homicidal ideation and Denies suicidal ideation Endocrine Endocrine: Denies fatigue, Denies flushing and Denies palpitations Hematologic/Lymphatic Hematologic/Lymphatic: Denies easy bruising Allergic/Immunologic Allergic/Immunologic: Denies urticaria, Denies throat swelling and Denies wheezing Patient History Medical History (Updated 12/10/24 @ 14:26 by Juliana Sepulveda PA-C) Anxiety History of adenomatous polyp of colon Exercise-induced asthma Essential hypertension Irritable bowel syndrome Depression Migraines Knee pain Shoulder pain Fractures Foot pain Chronic back pain Ankle pain Eczema Acne Chicken pox Recurrent sinusitis Painful menstrual periods Ovarian cyst Irregular menstrual cycle Infertility (~1999) Hemorrhoid (~2005) Gluten enteropathy (~2010) GERD (gastroesophageal reflux disease) (~2009) Polycystic ovaries (05/10/17) Obstructive sleep apnea syndrome (05/10/17) Celiac disease (05/10/17) Surgical History Anesthesia History of ankle surgery (~06/2016) History of knee surgery (~1996) History of carpal tunnel repair (~07/2014) Family History Child Age: 17 Cerebral palsy Father Age: 79 Colon cancer Hypertension Grandfather Heart disease Stroke Diabetes mellitus Grandmother Mental health problem History of aneurysm Mother Age: 78 Depression Uterine cancer Hypertension High cholesterol Mental health problem Grandfather Heart disease Diabetes mellitus Stroke Grandmother Hypertension Mental health problem Sister Age: 56 Colon cancer Graves disease Social History household members: spouse Smoking Status: Never smoker Smoking Status: Never smoker alcohol intake frequency: 0-2 drinks per day Exam Narrative Exam Narrative: Const General:?cooperative, healthy appearing and comfortable [facility] Head:?normal to inspection Ears:?hearing grossly normal bilaterally Nose:?external nose normal Face and sinus:?normal facial exam and sinuses nontender Mouth:?oral mucosae normal Throat:?posterior oropharynx normal Eyes General:?appearance normal, both eyes and all related structures Neck Neck:?normal visual inspection and no lymphadenopathy noted Resp Effort & Inspection:?normal respiratory effort Auscultation:?clear to auscultation bilaterally Cardio Rate:?regular rate Rhythm:?regular rhythm GI Abdomen is soft, nondistended, nontender to palpation. Neuro General:?patient alert, patient awake and patient oriented x3 Initial Vital Signs Initial Vital Signs: Vital Signs Temperature 97.3 F L 12/10/24 11:44 Pulse Rate 103 H 12/10/24 11:44 Respiratory Rate 18 12/10/24 11:44 Blood Pressure 147/73 H 12/10/24 11:44 Pulse Oximetry 96 12/10/24 11:44 Oxygen Delivery Method Room Air 12/10/24 11:44 Course Orders Ordered: ED Orders 12/10/24 12:04 CT abdomen pelvis w con Stat 12/10/24 12:11 CBC Auto Diff [Complete Blood Count AUTO DIFF] Stat CMP [Comprehensive Metabolic Panel] Stat Lactate (Lactic Acid) Stat Lipase Stat PT [Prothrombin Time INR] Stat PTT [PTT Partial Thromboplastin David] Stat 12/10/24 13:15 US abdomen limited Stat 12/10/24 13:24 Urinalysis and Microscopic Stat Urine Culture Stat Discontinued Medications Ceftriaxone Sodium 1,000 mg/ (Sodium Chloride) 100 mls @ 200 mls/hr IV NOW ONE Stop: 12/10/24 14:12 Last Admin: 12/10/24 14:26 Dose: 200 mls/hr Documented By: MOUSTAPHA Morphine Sulfate (Morphine 4 Mg/Ml Inj) 4 mg IV NOW ONE Stop: 12/10/24 12:06 Last Admin: 12/10/24 12:13 Dose: 4 mg Documented By: OMARI Vital Signs Vital signs: Vital Signs - 8 hr 12/10/24 11:44 12/10/24 11:51 12/10/24 12:00 Temperature 97.3 F L Pulse Rate 103 H 95 H 100 H Respiratory Rate 18 Blood Pressure 147/73 H Pulse Oximetry 96 98 96 Oxygen Delivery Method Room Air 12/10/24 12:30 12/10/24 13:00 12/10/24 14:25 Temperature Pulse Rate 96 H 98 H 95 H Respiratory Rate Blood Pressure Pulse Oximetry 96 95 96 Oxygen Delivery Method 12/10/24 14:25 12/10/24 14:30 12/10/24 14:30 Temperature Pulse Rate 97 H Respiratory Rate Blood Pressure 104/67 107/69 Pulse Oximetry 96 Oxygen Delivery Method MDM - Back Pain/Injury Lab Data 12/10/24 12:11 12/10/24 12:11 Labs: Lab Results 12/10/24 12/10/24 Range/Units 12:11 13:24 WBC 13.9 H (4.5-11.0) X10^3/uL RBC 4.88 (4.0-5.2) X10^6/uL Hgb 15.0 (12.0-16.0) g/dL Hct 45.6 (36-46) % MCV 93.5 (80-100) fL MCH 30.7 (26-34) PG MCHC 32.8 (30-36) % RDW 14.5 (11.6-14.8) % Plt Count 316 (150-400) X10^3/uL Neut % (Auto) 69.9 (50-75) % Lymph % (Auto) 22.9 L (25-40) % Gates % (Auto) 6.1 (3-14) % Eos % (Auto) 0.4 L (2-4) % Baso % (Auto) 0.7 (0-2) % Neut # (Auto) 9700 H (9408-4608) /uL Lymph # (Auto) 3200 (2710-6836) /uL Gates # (Auto) 800 (0-900) /uL Eos # (Auto) 100 (0-450) /uL Baso # (Auto) 100 (0-100) /uL PT 12.5 (9.4-12.5) SECONDS INR 1.1 (0.9-1.3) APTT 36 (25.1-36.5) SECONDS Sodium 139 (137-145) mmol/L Potassium 3.5 (3.4-5.1) mmol/L Chloride 106 (98-107) mmol/L Carbon Dioxide 21 L (22-32) mmol/L BUN 15 (7-17) mg/dL Creatinine 0.74 (0.52-1.04) mg/dL Estimated GFR > 60 (>60) mL/min BUN/Creatinine Ratio 20.3 (6-22) Glucose 106 H (70-100) mg/dL Lactate 2.1 (0.7-2.1) mmol/L Calcium 9.0 (8.4-10.2) mg/dL Total Bilirubin 0.7 (0.2-1.3) mg/dL AST 29 (14-36) IU/L ALT 34 (<35) IU/L Alkaline Phosphatase 91 (38-126) U/L Total Protein 7.7 (6.3-8.2) g/dL Albumin 4.0 (3.5-5.0) g/dL Globulin 3.7 (1.7-4.1) g/dL Albumin/Globulin Ratio 1.1 (1.0-2.8) Lipase 129 (23-300) U/L Urine Color Yellow Urine Appearance Sl cloudy Urine pH 5.5 (4.5-8.0) Ur Specific [place] <=1.005 (1.000-1.035) Urine Protein 1+ H (Negative) Urine Glucose (UA) Negative (Negative) g/dL Urine Ketones Negative (NEGATIVE) Urine Occult Blood Negative (Negative) Urine Nitrate Positive H (Negative) Urine Bilirubin Negative (NEGATIVE) Urine Urobilinogen 0.2 (0.2) E.U./dL Ur Leukocyte Esterase 1+ H (NEGATIVE) Urine RBC 0-1/hpf (0-5/HPF) Urine WBC 5-10/hpf H (0-5/HPF) Ur Squamous Epith Cells 5-10 /hpf H (0-5/HPF) Amorphous Sediment 1+ Urine Bacteria Moderate (10-30) H (None) Ur Culture Indicated? Specimen cultured Vol Urine Centrifuged 10ml (spun) MDM Narrative Medical decision making narrative: 54-year-old female with past medical history hypertension, GERD, chronic back pain, obstructive sleep apnea, migraines, depression, anxiety presents to the ED with 1 day of acute right-sided flank pain radiating around to the right groin. Concern for nephrolithiasis versus UTI versus pyelonephritis versus intra-abdominal pathology versus musculoskeletal sprain/strain of the back versus other. Will obtain labs, urine, CT abdomen pelvis. patient's control is poorly controlled with the ketorolac that she got from EMS on route to the ED. Will give morphine. Will reassess. UA positive for UTI. WBC mildly elevated at 13.9. All other labs unremarkable. CT shows cholelithiasis without wall thickening to suggest acute cholecystitis at this time. Nonobstructing right-sided nephrolithiasis. No hydronephrosis. Normal appendix. Submucosal fat deposition within the urinary bladder, suggestive of chronic infection or inflammation. Ultrasound was obtained which shows cholelithiasis without sonographic evidence of acute cholecystitis. Patient is also not symptomatic in the right upper quadrant. Patient's symptoms improved somewhat with morphine. Patient's symptoms could likely be due to pyelonephritis versus musculoskeletal sprain/strain of the back versus other. Patient was given a dose of Rocephin in the ED. Prescribed p.o. antibiotics and pain medication to continue at home. recommend follow-up with General surgery regarding the cholelithiasis. Recommend follow-up with Urology for nephrolithiasis. ED return precautions were discussed with patient. Patient verbalized understanding. Medical records reviewed: Yes Discharge Plan Departure Patient Disposition: Home Clinical Impression: Pyelonephritis Instructions: Kidney Infection, DI for Urinary Tract Infection (UTI) Activity Restrictions/Additional Instructions: You were evaluated in the ED today for flank and groin pain. Your urine and CT confirms a urinary tract infection at could be causing your symptoms. The CT also shows gallstones without any signs of infection at this time. There are also nonobstructing kidney stones. It does not appear that your gallstones or kidney stones are causing your symptoms at this time. It is recommended that you follow-up with a general surgeon for further evaluation of the gallstones. It is also recommended that you follow-up with urology regarding kidney stones and further prevention. Please continue good hydration. You were given the 1st dose of antibiotics in the ED. You will continue to take oral antibiotics And pain medication at home. Please follow-up with your PCP as soon as possible. Return to the ED if you have worsening symptoms. Prescriptions: New cefpodoxime 200 mg tablet 200 mg PO Q12H 14 Days Qty: 28 0RF Rx Instructions: must administer with a meal/food tramadol 50 mg tablet 50 mg PO Q4H PRN (Reason: pain) Qty: 20 0RF No Action meloxicam 15 mg tablet 15 mg PO DAILY PRN (Reason: Pain (Scale Score 4-6)) venlafaxine 150 mg capsule,extended release 24hr 300 mg PO DAILY propranolol 80 mg capsule,extended release 24hr 80 mg PO DAILY losartan 25 mg tablet 25 mg PO DAILY gabapentin 100 mg capsule 100 mg PO ONCE PM PRN (Reason: Sleep) hydrocodone-acetaminophen 5-325 mg Tablet 1 tab PO Q4H PRN (Reason: Pain, Moderate (4-6)) Qty: 20 0RF albuterol sulfate 90 mcg/actuation aerosol powdr breath activated 1 inh inhalation Q4-6H PRN (Reason: shortness of breath) Qty: 1 2RF benzonatate 200 mg capsule 200 mg PO BID-TID PRN (Reason: cough) Qty: 30 0RF prednisone 20 mg tablet 40 mg PO DAILY Qty: 10 0RF Referrals: Cristina Segura ARNP [Primary Care Provider] - Stand Alone Forms: Patient Portal/API/Survey
--- NOTE | 2024-12-10 12:04 | DI.CT.S_ITS ---
PROCEDURE: CT ABDOMEN PELVIS W CON INDICATIONS: R flank, groin pain; on Wegovy TECHNIQUE: After the administration of intravenous contrast, axial sections acquired from the lung bases to the pubic symphysis. Coronal and sagittal reformats were performed. For radiation dose reduction, the following was used: automated exposure control, adjustment of mA and/or kV according to patient size. COMPARISON: None. FINDINGS: Image quality: Diagnostic. Lower Chest: No significant findings. ABDOMEN: Liver: No solid mass. Gallbladder: Cholelithiasis without wall thickening. Biliary ducts: No biliary dilation. Pancreas: No ductal dilation. Spleen: Size is within normal limits. Adrenal Glands: No adrenal nodules. Kidneys and Ureters: No hydronephrosis. No solid mass. No complex renal cystic lesion which requires follow up. Small burden of right-sided nonobstructing nephrolithiasis, largest stone measuring 8 mm. Stomach and Bowel: Normal colonic caliber, without significant wall thickening. Normal appendix. No diverticular disease. Peritoneum: No abnormal intraperitoneal fluid. No free air. Ventral Wall: No significant ventral hernia. Abdominal Nodes: No retroperitoneal or mesenteric adenopathy by size criteria. Vessels: Aorta and inferior vena cava are normal in size. PELVIS: Pelvic Organs: IUD within the endometrium.. Bladder: No bladder wall thickening, accounting for underdistention. Submucosal fat deposition. Urachal remnant is present. Pelvic Nodes: No enlarged lymph nodes. Miscellaneous: No inguinal hernias are seen. Bones: No aggressive osseous abnormality. IMPRESSION: Cholelithiasis without wall thickening to suggest acute cholecystitis at this time. Nonobstructing right-sided nephrolithiasis. No hydronephrosis. Normal appendix. Submucosal fat deposition within the urinary bladder, suggestive of chronic infection or inflammation. Dictated by: Bam Caceres M.D. on 12/10/2024 at 12:45 Approved by: Bam Caceres M.D. on 12/10/2024 at 12:47
[2024-12-10] MEDS: MORPHINE 4 MG/ML INJ IV (12:13)
[2024-12-10 12:29] LABS: Add Manual Diff / Slide Review NO; Basophils Absolute Auto 100 /uL (0-100); Basophils Percent Auto 0.7 % (0-2); Eosinophils Absolute Auto 100 /uL (0-450); Eosinophils Percent Auto 0.4 % (2-4); Hematocrit 45.6 % (36-46); Lymphocytes Absolute Auto 3200 /uL (1100-4500); Lymphocytes Percent Auto 22.9 % (25-40); Mean Corpuscular HGB Conc 32.8 % (30-36); Mean Corpuscular Hemoglobin 30.7 PG (26-34); Mean Corpuscular Volume 93.5 fL (80-100); Monocytes Absolute Auto 800 /uL (0-900); Monocytes Percent Auto 6.1 % (3-14); Neutrophils Absolute Auto 9700 /uL (1500-7000); Neutrophils Percent Auto 69.9 % (50-75); Platelet Count 316 X10^3/uL (150-400); Red Blood Cell Count 4.88 X10^6/uL (4.0-5.2); Red Cell Distribution Width 14.5 % (11.6-14.8); White Blood Cell Count 13.9 X10^3/uL (4.5-11.0)
[2024-12-10 12:32] LABS: INR 1.1 (0.9-1.3); Prothrombin Time 12.5 SECONDS (9.4-12.5)
[2024-12-10 12:34] LABS: PTT Partial Thromboplastin Tim 36 SECONDS (25.1-36.5)
[2024-12-10 12:41] LABS: Alanine Aminotransferase 34 IU/L (<35); Albumin Globulin Ratio 1.1 (1.0-2.8); Alkaline Phosphatase 91 U/L (38-126); Aspartate Aminotransferase 29 IU/L (14-36); BUN Creatinine Ratio 20.3 (6-22); Bilirubin Total 0.7 mg/dL (0.2-1.3); Blood Urea Nitrogen 15 mg/dL (7-17); Carbon Dioxide 21 mmol/L (22-32); Chloride 106 mmol/L (98-107); Estimated Glomerular Filt Rate > 60 mL/min (>60); Globulin 3.7 g/dL (1.7-4.1); Glucose 106 mg/dL (70-100); HEMOLYSIS 15 (0-50); Lipase 129 U/L (23-300); Potassium 3.5 mmol/L (3.4-5.1); Sodium 139 mmol/L (137-145); Total Protein 7.7 g/dL (6.3-8.2)
[2024-12-10 12:42] LABS: Lactate (Lactic Acid) 2.1 mmol/L (0.7-2.1)
--- NOTE | 2024-12-10 13:15 | DI.US.S_ITS ---
PROCEDURE: US ABDOMEN LIMITED INDICATIONS: ?cholecystitis TECHNIQUE: Real-time scanning was performed of the abdominal and retroperitoneal organs, with image documentation. COMPARISON: [facility], CT, CT ABDOMEN PELVIS W CON, 12/10/2024, 12:40. FINDINGS: Liver: Increased liver echogenicity with posterior attenuation, most consistent with moderate to severe steatosis. Gallbladder: Cholelithiasis. No wall thickening. Negative pericholecystic edema. Biliary ducts: Intrahepatic bile ducts are non-dilated. Extrahepatic bile duct caliber measures 5 mm. Normal is 6-7 mm or less in diameter, or 10 mm or less post-cholecystectomy. Pancreas: Visualized portions of the pancreas are sonographically normal. Miscellaneous: No free abdominal fluid. IMPRESSION: Cholelithiasis without sonographic evidence of acute cholecystitis. If this patient is symptomatic, findings could represent symptomatic cholelithiasis. Dictated by: Bam Caceres M.D. on 12/10/2024 at 14:04 Approved by: Bam Caceres M.D. on 12/10/2024 at 14:05
[2024-12-10 13:31] LABS: Appearance Urine UA SL CLOUDY; Bilirubin Urine UA NEGATIVE (NEGATIVE); Color Urine UA YELLOW; Glucose Urine UA NEGATIVE (Negative); Ketones Urine UA NEGATIVE (NEGATIVE); Leukocyte Esterase Urine UA 1+ (NEGATIVE); Nitrite Urine UA POSITIVE (Negative); Occult Blood Urine UA NEGATIVE (Negative); Protein Urine UA 1+ (Negative); Specific Gravity Urine UA <=1.005 (1.000-1.035); Urobilinogen Urine UA 0.2 E.U./dL (0.2)
[2024-12-10 13:37] LABS: pH Urine UA 5.5 (4.5-8.0)
[2024-12-10 13:39] LABS: Bacteria Urine Moderate (10-30); RBC Urine 0-1/HPF (0-5/HPF); Squamous Epithelial Cell Urine 5-10 /HPF (0-5/HPF); Urine Volume 10mL (spun); WBC Urine 5-10/HPF (0-5/HPF)
[2024-12-10 13:40] LABS: Amorphous Sediment Urine 1+; Culture Indicated Urine Specimen Cultured
[2024-12-10 13:55] LABS: Reflexed Lactate in 2 Hours Y
[2024-12-10] MEDS: cefTRIAXone 1,000 MG in SODIUM CHLORIDE 0.9% 100 ML 200 MG IV (14:26)
--- NOTE | 2025-01-07 09:45 | PC.NURSE ---
late entry- per RN dose of Ceftriaxone was discontinued at 1500 prior to discharge.
== END 2024-12-10 15:20 | disposition home or self-care (01) ==
PROVIDERS: Emergency Provider Student in an Organized Health Care Education/Training Program; PCP Nurse Practitioner Family
DX: N10 Acute pyelonephritis (principal); N20.0 Calculus of kidney
CPT/HCPCS: 36415; 74177; 76705; 80053; 81001; 83605; 83690; 85025; 85610; 85730; 87077; 87086; 87186; 96365; 96375; 99284; J0696; J2270; Q9967

== ENCOUNTER 2025-03-11 01:57 | Emergency (ER) | payer OTHER, SELFPAY ==
[2024-04-01 15:42] VITALS: BMI 45.8
[2025-03-11] VITALS (7 sets, daily range): BP systolic 130–160; BP diastolic 80–92; PULSE 86–94; RESP 16–26; TEMP 36.9–37.3; O2SAT 92–96; BMI 39.4
[2025-03-11] MEDS: KETOROLAC 30 MG/ML VIAL 15 MG IV (02:33)
[2025-03-11] MEDS: ONDANSETRON 4 MG/2 ML INJ IV (02:33)
[2025-03-11 02:38] LABS: Add Manual Diff / Slide Review NO; Basophils Absolute Auto 100 /uL (0-100); Basophils Percent Auto 0.5 % (0-2); Eosinophils Absolute Auto 0 /uL (0-450); Eosinophils Percent Auto 0.2 % (2-4); Hematocrit 44.3 % (36-46); Hemoglobin 15.2 g/dL (12.0-16.0); Lymphocytes Absolute Auto 1900 /uL (1100-4500); Lymphocytes Percent Auto 11.6 % (25-40); Mean Corpuscular HGB Conc 34.4 % (30-36); Mean Corpuscular Hemoglobin 31.5 PG (26-34); Mean Corpuscular Volume 91.6 fL (80-100); Monocytes Absolute Auto 1000 /uL (0-900); Monocytes Percent Auto 6.1 % (3-14); Neutrophils Absolute Auto 13200 /uL (1500-7000); Neutrophils Percent Auto 81.6 % (50-75); Platelet Count 271 X10^3/uL (150-400); Red Blood Cell Count 4.83 X10^6/uL (4.0-5.2); White Blood Cell Count 16.2 X10^3/uL (4.5-11.0)
[2025-03-11 02:44] LABS: RBC Urine 0-1/HPF (0-5/HPF); Urine Volume 10mL (spun)
[2025-03-11 02:45] LABS: Bacteria Urine Moderate (10-30); Squamous Epithelial Cell Urine 1-5 /HPF (0-5/HPF); WBC Urine 5-10/HPF (0-5/HPF)
[2025-03-11 02:46] LABS: Amorphous Sediment Urine 2+; Culture Indicated Urine Specimen Cultured
[2025-03-11 02:47] LABS: Alanine Aminotransferase 30 IU/L (<35); Albumin 4.3 g/dL (3.5-5.0); Alkaline Phosphatase 96 U/L (38-126); Aspartate Aminotransferase 27 IU/L (14-36); BUN Creatinine Ratio 22.3 (6-22); Bilirubin Total 0.6 mg/dL (0.2-1.3); Blood Urea Nitrogen 21 mg/dL (7-17); Calcium 9.4 mg/dL (8.4-10.2); Carbon Dioxide 20 mmol/L (22-32); Chloride 106 mmol/L (98-107); Estimated Glomerular Filt Rate > 60 mL/min (>60); Globulin 4.1 g/dL (1.7-4.1); Glucose 122 mg/dL (70-99); HEMOLYSIS < 15 (0-50); Lipase 119 U/L (23-300); Potassium 3.9 mmol/L (3.4-5.1); Sodium 137 mmol/L (137-145); Total Protein 8.4 g/dL (6.3-8.2)
--- NOTE | 2025-03-11 04:27 | DI.CT.S_ITS ---
PROCEDURE: CT ABDOMEN PELVIS W CON INDICATIONS: abd pain TECHNIQUE: After the administration of intravenous contrast, axial sections acquired from the lung bases to the pubic symphysis. Coronal and sagittal reformats were performed. For radiation dose reduction, the following was used: automated exposure control, adjustment of mA and/or kV according to patient size. COMPARISON: [facility], CT, CT ABDOMEN PELVIS W CON, 12/10/2024, 12:40. FINDINGS: Image quality: Diagnostic. Lower Chest: No significant findings. ABDOMEN: Liver: No solid mass. Liver is mildly hypoattenuating, which can be seen with fatty infiltration. Gallbladder: Peripherally calcified gallstones are seen. No pericholecystic inflammatory changes. Biliary ducts: No biliary dilation. Pancreas: No ductal dilation. Spleen: Size is within normal limits. Adrenal Glands: No adrenal nodules. Kidneys and Ureters: Mildly delayed enhancement of the right kidney. There is a 6 mm calculus (750 Hounsfield units) in the right proximal ureter at the ureteropelvic junction with moderate right hydronephrosis. Distal right ureter is nondistended. Additional 1-2 mm nonobstructing calculi are seen in the interpolar region of the right kidney. Simple cyst is seen at the inferior pole of the right kidney. No left- sided nephrolithiasis or hydronephrosis. No solid mass. No complex renal cystic lesion which requires follow up. Stomach and Bowel: Normal colonic caliber, without significant wall thickening. Small bowel loops are nondilated. Fluid-filled appendix is seen in the right lower quadrant and measures up to 7 mm in diameter without periappendiceal fat stranding. No appendicolith is seen. Peritoneum: No abnormal intraperitoneal fluid. No free air. Ventral Wall: The fat containing periumbilical hernia. Abdominal Nodes: No retroperitoneal or mesenteric adenopathy by size criteria. Vessels: Aorta and inferior vena cava are normal in size. PELVIS: Pelvic Organs: Intrauterine device is seen in expected position within the uterus. Bladder: Similar mural fat in the bladder wall when compared to the prior CT. Pelvic Nodes: No enlarged lymph nodes. Miscellaneous: No inguinal hernias are seen. Bones: No aggressive osseous abnormality. Mild healed right lower lateral rib fracture is present. No acute osseous abnormality. Degenerative changes are seen in the sacroiliac joints and included spine. Bridging osteophytes or syndesmophytes are seen in the lower thoracic spine. IMPRESSION: 1. Right proximal ureteral 6 mm calculus at the ureteropelvic junction with moderate right hydronephrosis. 2. Additional punctate non-obstructing right renal calculi. 3. Borderline size of the appendix at 7 mm without periappendiceal inflammatory changes, likely the physiologic although correlation with symptoms is recommended. 4. Cholelithiasis without signs of acute cholecystitis. There is no significant discrepancy when compared to the overnight preliminary report. Approved by: Leroy Gutierrez M.D. on 03/11/2025 at 8:08
--- NOTE | 2025-03-11 06:33 | EKG_ITS ---
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
[2025-03-11] MEDS: HYDROMORPHONE 1 MG INJ IV (06:46)
--- NOTE | 2025-03-11 06:55 | ED.ABDPAIN ---
HPI - Abdominal Pain General Chief Complaint: Abdominal Pain Stated Complaint: abd pain radiating to back, vomiting Time Seen by Provider: 03/11/25 04:27 Source: patient Mode of arrival: Ambulatory History of Present Illness HPI narrative: 54-year-old female with history of kidney stones, 2 months ago had past right-sided 8 mm stone, was felt to have infection, was on antibiotics, took Flomax and meloxicam, never saw any passed stone but had resolution of symptoms, being treated in followed up with her regular PCP, no Urology interventions at that time. Now with right-sided flank and right upper quadrant pain feels similar, since 4:00 p.m. yesterday. No fevers or chills. No nausea or vomiting. No diarrhea. No black or red stools. No injury or trauma new activities. Related Data Home Medications ?Medication ?Instructions ?Recorded ?Confirmed gabapentin 100 mg capsule 100 mg PO ONCE PM PRN Sleep 04/01/24 04/01/24 losartan 25 mg tablet 25 mg PO DAILY 04/01/24 04/01/24 meloxicam 15 mg tablet 15 mg PO DAILY PRN Pain (Scale 04/01/24 04/01/24 Score 4-6) propranolol 80 mg capsule,24 80 mg PO DAILY 04/01/24 04/01/24 hr,extended release venlafaxine 150 mg 300 mg PO DAILY 04/01/24 04/01/24 capsule,extended release 24 hr Previous Rx's ?Medication ?Instructions ?Recorded albuterol sulfate 90 mcg/actuation 1 inh inhalation Q4-6H PRN 04/02/24 breath activated powder inhaler shortness of breath #1 ea benzonatate 200 mg capsule 200 mg PO BID-TID PRN cough #30 04/02/24 caps hydrocodone 5 mg-acetaminophen 325 1 tab PO Q4H PRN Pain, Moderate 04/02/24 mg tablet (4-6) #20 tabs prednisone 20 mg tablet 40 mg (2 x 20 mg) PO DAILY #10 tabs 04/02/24 tramadol 50 mg tablet 50 mg PO Q4H PRN pain #20 tabs 12/10/24 ciprofloxacin HCl 500 mg tablet 500 mg PO BID 10 days #20 tabs 03/11/25 oxycodone-acetaminophen 5 mg-325 1 tab PO Q6H PRN pain #20 tabs 03/11/25 mg tablet tamsulosin 0.4 mg capsule 0.4 mg PO DAILY #14 caps 03/11/25 Allergies Allergy/AdvReac Type Severity Reaction Status Date / Time amoxicillin (From AUGMENTIN) Allergy Severe chest Verified 04/01/24 10:29 pain, SOB clavulanic acid (From Allergy Severe chest Verified 04/01/24 10:29 AUGMENTIN) pain, SOB latex (LATEX) Allergy Intermediate Rash Verified 04/01/24 10:29 lisinopril (LISINOPRIL) Allergy Mild cough Verified 04/01/24 10:29 gluten Allergy Verified 04/02/24 12:38 nirmatrelvir (From Paxlovid) Allergy Anaphylaxis Verified 04/02/24 00:15 ritonavir (From Paxlovid) Allergy Anaphylaxis Verified 04/02/24 00:15 Patient History Medical History (Updated 03/11/25 @ 07:21 by Brendan Chinchilla MD) Anxiety History of adenomatous polyp of colon Exercise-induced asthma Essential hypertension Irritable bowel syndrome Depression Migraines Knee pain Shoulder pain Fractures Foot pain Chronic back pain Ankle pain Eczema Acne Chicken pox Recurrent sinusitis Painful menstrual periods Ovarian cyst Irregular menstrual cycle Infertility (~1999) Hemorrhoid (~2005) Gluten enteropathy (~2010) GERD (gastroesophageal reflux disease) (~2009) Polycystic ovaries (05/10/17) Obstructive sleep apnea syndrome (05/10/17) Celiac disease (05/10/17) Surgical History Anesthesia History of ankle surgery (~06/2016) History of knee surgery (~1996) History of carpal tunnel repair (~07/2014) Family History Child Age: 17 Cerebral palsy Father Age: 79 Colon cancer Hypertension Grandfather Heart disease Stroke Diabetes mellitus Grandmother Mental health problem History of aneurysm Mother Age: 78 Depression Uterine cancer Hypertension High cholesterol Mental health problem Grandfather Heart disease Diabetes mellitus Stroke Grandmother Hypertension Mental health problem Sister Age: 56 Colon cancer Graves disease Social History household members: spouse Smoking Status: Never smoker Smoking Status: Never smoker alcohol intake frequency: 0-2 drinks per day Exam Narrative Exam Narrative: GENERAL: Well-developed patient, in mild distress. HEAD: Atraumatic. Normocephalic. EYES: Pupils equal round and reactive. Extraocular motions intact. No scleral icterus. No injection or drainage. ENT: Nose without bleeding, purulent drainage. Throat without erythema, tonsillar hypertrophy or exudate. Airway patent. NECK: Trachea midline. Non tender CARDIOVASCULAR: Regular rate and rhythm without murmurs, gallops, or rubs. RESPIRATORY: Clear to auscultation. Breath sounds equal bilaterally. No wheezes, rales, or rhonchi. GASTROINTESTINAL: Abdomen soft, non-tender, nondistended. EXTREMITIES: No edema or joint tenderness. BACK: Nontender without deformity or crepitance. No flank tenderness. NEURO: AOx3. Motor functions grossly nonfocal. SKIN: No rash or erythema of visible areas Initial Vital Signs Initial Vital Signs: Vital Signs Temperature 99.1 F 03/11/25 02:29 Pulse Rate 94 H 03/11/25 02:29 Respiratory Rate 26 H 03/11/25 02:29 Blood Pressure 149/84 H 03/11/25 02:29 Pulse Oximetry 95 03/11/25 02:29 Oxygen Delivery Method Room Air 03/11/25 02:29 Course Orders Ordered: Discontinued Medications Hydromorphone HCl (Hydromorphone 1 Mg Inj) 1 mg IV NOW ONE Stop: 03/11/25 06:39 Last Admin: 03/11/25 06:46 Dose: 1 mg Documented By: KELVIN Ciprofloxacin (Cipro) 400 mg in 200 mls @ 200 mls/hr IV NOW ONE Stop: 03/11/25 07:37 Last Admin: 03/11/25 06:59 Dose: 200 mls/hr Documented By: KELVIN Ketorolac Tromethamine (Ketorolac 30 Mg/Ml Vial) 15 mg IV NOW ONE Stop: 03/11/25 02:23 Last Admin: 03/11/25 02:33 Dose: 15 mg Documented By: LISANDRA Ondansetron HCl (Ondansetron 4 Mg/2 Ml Inj) 4 mg IV NOW PRN PRN Reason: Nausea And Vomiting Last Admin: 03/11/25 02:33 Dose: 4 mg Documented By: LISANDRA Ondansetron HCl (Ondansetron 4 Mg Odt) 4 mg PO NOW PRN PRN Reason: Nausea And Vomiting Vital Signs Vital signs: Vital Signs - 8 hr 03/11/25 07:00 03/11/25 07:00 03/11/25 07:30 Temperature Pulse Rate 90 86 Respiratory Rate 18 17 Blood Pressure 147/82 H Pulse Oximetry 94 92 Oxygen Delivery Method Room Air 03/11/25 07:30 03/11/25 08:09 Temperature 98.4 F Pulse Rate 89 Respiratory Rate 16 Blood Pressure 157/83 H 160/80 H Pulse Oximetry 96 Oxygen Delivery Method Room Air MDM - Abdominal Pain Lab Data Attestation: I reviewed the patient's lab results. Lab results narrative: White blood cell count 30198, hemoglobin 15.2, platelets 271,000. Glucose 122. BUN 21 with creatinine 0.94 normal renal function. Serum CO2 20 slight decreased. Electrolytes unremarkable. Liver functions normal. Urinalysis with bacteriuria and some inflammatory cells, urine culture triggered by protocol. 03/11/25 02:14 03/11/25 02:14 Labs: Lab Results 03/11/25 03/11/25 Range/Units 02:14 02:25 WBC 16.2 H (4.5-11.0) X10^3/uL RBC 4.83 (4.0-5.2) X10^6/uL Hgb 15.2 (12.0-16.0) g/dL Hct 44.3 (36-46) % MCV 91.6 (80-100) fL MCH 31.5 (26-34) PG MCHC 34.4 (30-36) % RDW 14.0 (11.6-14.8) % Plt Count 271 (150-400) X10^3/uL Neut % (Auto) 81.6 H (50-75) % Lymph % (Auto) 11.6 L (25-40) % [place] % (Auto) 6.1 (3-14) % Eos % (Auto) 0.2 L (2-4) % Baso % (Auto) 0.5 (0-2) % Neut # (Auto) 78968 H (2807-6779) /uL Lymph # (Auto) 1900 (2162-8157) /uL [place] # (Auto) 1000 H (0-900) /uL Eos # (Auto) 0 (0-450) /uL Baso # (Auto) 100 (0-100) /uL Sodium 137 (137-145) mmol/L Potassium 3.9 (3.4-5.1) mmol/L Chloride 106 (98-107) mmol/L Carbon Dioxide 20 L (22-32) mmol/L BUN 21 H (7-17) mg/dL Creatinine 0.94 (0.52-1.04) mg/dL Estimated GFR > 60 (>60) mL/min BUN/Creatinine Ratio 22.3 H (6-22) Glucose 122 H (70-99) mg/dL Calcium 9.4 (8.4-10.2) mg/dL Total Bilirubin 0.6 (0.2-1.3) mg/dL AST 27 (14-36) IU/L ALT 30 (<35) IU/L Alkaline Phosphatase 96 (38-126) U/L Total Protein 8.4 H (6.3-8.2) g/dL Albumin 4.3 (3.5-5.0) g/dL Globulin 4.1 (1.7-4.1) g/dL Albumin/Globulin Ratio 1.0 (1.0-2.8) Lipase 119 (23-300) U/L Urine RBC 0-1/hpf (0-5/HPF) Urine WBC 5-10/hpf H (0-5/HPF) Ur Squamous Epith Cells 1-5 /hpf (0-5/HPF) Amorphous Sediment 2+ Urine Bacteria Moderate (10-30) H (None) Ur Culture Indicated? Specimen cultured Vol Urine Centrifuged 10ml (spun) Point of care testing: Urine Dip Bedside Urine Glucose Negative Bedside Urine Bilirubin - Negative Bedside Urine Ketone - Negative Urine Specific [place] 1.015 Bedside Urine Occult Blood +/- Bedside Urine pH 7.0 Bedside Urine Protein - Negative Bedside Urine Urobilinogen - Negative Bedside Urine Nitrite - Negative Bedside Urine Leukocytes - Negative Esterase ECG Data Attestation: I personally reviewed and interpreted this ECG as follows: Interpretation: 0633, normal sinus rhythm with rate 90, no obvious ST segment elevation or depression changes. IL 196, QRS 100. QTC 472. MDM Narrative Medical decision making narrative: 54-year-old female with history of kidney stones, recent passage 8 mm right-sided stone 2 months ago, symptoms had resolved, now with new right-sided flank pain since yesterday 4:00 p.m.. Concerned she may have another stone. Afebrile, sirs screen negative. Lab data: White blood cell count 52715, hemoglobin 15.2, platelets 271,000. Glucose 122. BUN 21 with creatinine 0.94 normal renal function. Serum CO2 20 slight decreased. Electrolytes unremarkable. Liver functions normal. Urinalysis with bacteriuria and some inflammatory cells, urine culture triggered by protocol. CT abdomen and pelvis with IV contrast. Impressions: ?Moderate to severe right hydroureteronephrosis with obstructing proximal ureteral calculus measuring 6 mm.. See tele radiology report. History of penicillin allergy. IV ciprofloxacin. Patient symptoms improved after Toradol and opiate analgesia. IV antibiotics infusing. She was recently able to successfully pass a right-sided 8 mm stone with an infection apparently 2 months ago, without urology interventions. She would like to follow up with her primary care provider next week as planned. We will discharge patient on prescription for oxycodone, refill of her Flomax, and ciprofloxacin antibiotic course. She has meloxicam to take at home. We will also provide contact information for your local urologists on-call Dr. Joyce if she needs, though she seems interested in following up with her primary care provider through this course of illness again. Discharged home with family. Return precautions discussed. Discharge Plan Departure Patient Disposition: Home Clinical Impression: Right ureteral calculus, Urinary tract infection Instructions: DI for Kidney Stones, DI for Urinary Tract Infection (UTI) Activity Restrictions/Additional Instructions: Right-sided nontraumatic flank and abdominal pain. History of kidney stones with successful reported passive 8 mm stone 2 months ago, symptoms improved with Flomax and pain medication, and you also had infection at that time managed with course of antibiotics, without Urology interventions. CT scan shows presence of proximal right ureteral stone 6 mm. Urinalysis suspicious for infection. History of penicillin allergy noted. IV ciprofloxacin antibiotic initiated, prescription for further oral ciprofloxacin antibiotics sent to your pharmacy. We will refill oxycodone for pain control, refill of Flomax to help expel the stone. Continue taking your meloxicam anti-inflammatory medication. Recheck with your regular provider advised next week. Contact information also provided for local urologist if needed. You wanted to take the antibiotics and the pain medications and Flomax to follow up with your regular provider once again, and hopefully we will have successful like you did 2 months ago. Follow up earlier to this/nearest emergency department for any change worsening symptoms or any concerns prior. Prescriptions: New ciprofloxacin HCl 500 mg tablet 500 mg PO BID 10 Days Qty: 20 0RF oxycodone-acetaminophen 5-325 mg tablet 1 tab PO Q6H PRN (Reason: pain) Qty: 20 0RF tamsulosin 0.4 mg capsule 0.4 mg PO DAILY Qty: 14 0RF No Action meloxicam 15 mg tablet 15 mg PO DAILY PRN (Reason: Pain (Scale Score 4-6)) venlafaxine 150 mg capsule,extended release 24hr 300 mg PO DAILY propranolol 80 mg capsule,extended release 24hr 80 mg PO DAILY losartan 25 mg tablet 25 mg PO DAILY gabapentin 100 mg capsule 100 mg PO ONCE PM PRN (Reason: Sleep) hydrocodone-acetaminophen 5-325 mg Tablet 1 tab PO Q4H PRN (Reason: Pain, Moderate (4-6)) Qty: 20 0RF albuterol sulfate 90 mcg/actuation aerosol powdr breath activated 1 inh inhalation Q4-6H PRN (Reason: shortness of breath) Qty: 1 2RF benzonatate 200 mg capsule 200 mg PO BID-TID PRN (Reason: cough) Qty: 30 0RF prednisone 20 mg tablet 40 mg PO DAILY Qty: 10 0RF tramadol 50 mg tablet 50 mg PO Q4H PRN (Reason: pain) Qty: 20 0RF Referrals: Marcus Palma DO [Physician, Urology] Cirstina Segura ARNP [Primary Care Provider, Medical] Stand Alone Forms: Patient Portal/API
[2025-03-11] MEDS: CIPROFLOXACIN 400 MG/200 ML PIGGYBACK 200 MG IV (06:59)
== END 2025-03-11 08:11 | disposition home or self-care (01) ==
PROVIDERS: Emergency Provider Emergency Medicine; PCP Nurse Practitioner Family
DX: N20.1 Calculus of ureter (principal); N39.0 Urinary tract infection, site not specified; Z87.442 Personal history of urinary calculi
CPT/HCPCS: 36415; 74177; 80053; 81003; 81015; 83690; 85025; 87077; 87086; 87186; 93005; 93010; 96365; 96375; 99284; J0744; J1171; J1885; J2405; Q9967